=== PATIENT | male | born 1995 | race Caucasian/White ===

== ENCOUNTER 2018-08-03 10:09 | Emergency (ER) | payer OTHER ==
--- NOTE | 2018-08-03 11:07 | ED PDOC ---
HPI: General Adult Time Seen by Provider: 08/03/18 10:32 Chief Complaint (Nursing): Lower Extremity Problem/Injury Chief Complaint (Provider): leg pain History Per: Patient, EMS Additional Complaint(s): 23-year-old male with history of bipolar disorder presents to emergency room with bilateral ankle pain. Patient [place] and states he was on his way to [place] to see his mother. Patient complains of bilateral ankle pain secondary to walking. He denies any trauma or injury. Patient's states he takes several medications daily for bipolar which is compliant with. He denies any alcohol or drug use. Past Medical History Reviewed: Historical Data, Nursing Documentation, Vital Signs Vital Signs: Last Vital Signs Temp 98.4 F 08/03/18 10:11 Pulse 116 H 08/03/18 10:11 Resp 19 08/03/18 10:11 BP 148/91 H 08/03/18 10:11 Pulse Ox 97 08/03/18 10:11 - Medical History PMH: Bipolar Disorder, Depression, Seizures - Family History Family History: States: No Known Family Hx - Living Arrangements Living Arrangements: With Family (lives with sister) - Social History Current smoker - smoking cessation education provided: No Alcohol: None Drugs: Denies - Allergies Allergies/Adverse Reactions: Allergies Allergy/AdvReac Type Severity Reaction Status Date / Time Unobtainable Allergy Verified 08/03/18 10:13 Review of Systems ROS Statement: Except As Marked, All Systems Reviewed And Found Negative Musculoskeletal: Positive for: Other (b/l ankle pain) Psych: Positive for: Other (found wandering on side of road, h/i bipolar) Physical Exam - Reviewed Nursing Documentation Reviewed: Yes Vital Signs Reviewed: Yes - Physical Exam Appears: Positive for: Well, Non-toxic, No Acute Distress Skin: Positive for: Normal Color. Negative for: Rash Eye Exam: Positive for: Normal appearance Cardiovascular/Chest: Positive for: Regular Rate, Rhythm Respiratory: Positive for: Normal Breath Sounds. Negative for: Wheezing, Respiratory Distress Extremity: Positive for: Normal ROM Neurologic/Psych: Positive for: Alert, Oriented, Gait (steady) - ECG O2 Sat by Pulse Oximetry: 97 Pulse Ox Interpretation: Normal Medical Decision Making Medical Decision Makin-year-old male here for crisis evaluation, also complaining of bilateral ankle pain. Plan: PO motrin Crisis eval As per crisis counselor and psychiatrist admissions advisor Dr. Berry, patient does not meet criteria for admission and is stable for discharge per versus counselor spoke with patient's sister with whom he lives. Patient will be sent home via taxi, sister is at home. Patient stable for discharge. Disposition - Clinical Impression Clinical Impression: Bipolar disorder, Ankle pain - Patient ED Disposition Is Patient to be Admitted: No Counseled Patient/Family Regarding: Need For Followup - Disposition Referrals: [facility] [Outside] Disposition: Routine/Home Disposition Time: 11:45 Condition: STABLE Additional Instructions: Continue to take Advil for ankle pain as needed. Follow-up with primary doctor in 2-3 days. Instructions: Ankle Sprain, Bipolar Disorder (DC) Forms: [employer] (Greek)
[2018-08-03 11:33] VITALS: RESP 19
[2018-08-03 12:30] VITALS: BP 130/78; PULSE 87; TEMP 97
[2018-08-03 12:36] VITALS: O2SAT 97
== END 2018-08-03 12:31 | disposition home or self-care (01) ==
LOC: H.ER 10:09
DX: F31.9 Bipolar disorder, unspecified (principal); M25.571 Pain in right ankle and joints of right foot; M25.572 Pain in left ankle and joints of left foot